=== PATIENT | female | born 1960 | race African-American/Black ===

== ENCOUNTER 2021-10-06 13:03 | Emergency (ER) | payer OTHER ==
[2021-10-06 13:14] VITALS: TEMP 98.6; BMI 28.7
[2021-10-06] MEDS ORDERED: ACETAMINOPHEN 1000 MG/100 ML BAG IVPB ONE (13:25)
[2021-10-06] MEDS ORDERED: ASPIRIN 81 MG CHEWABLE TABLETS PO ONE (13:25)
[2021-10-06] MEDS ORDERED: ASPIRIN 81 MG CHEWABLE TABLETS ONE (13:34)
[2021-10-06] MEDS ORDERED: ACETAMINOPHEN INJECTION 100 ML IVPB ONE (13:35)
[2021-10-06 14:24] LABS: BASO % 0.6 % (0-2.0); EOS % 0.8 % (0-4.5); HEMATOCRIT 36.5 % (32.4-45.2); HEMOGLOBIN 11.6 GM/dL (10.7-15.3); LYMPH % 35.6 % (8-40); MCH 26.3 pg (25.7-33.7); MCHC 31.9 g/dl (32.0-36.0); MEAN CELL VOLUME 82.5 fl (80-96); MEAN PLT VOLUME 8.8 fl (7.5-11.1); MONO % 5.3 % (3.8-10.2); NEUT % 57.7 % (42.8-82.8); PLATELET COUNT 241 10^3/uL (134-434); RBC 4.42 M/mm3 (3.60-5.2); RDW 14.7 % (11.6-15.6); WHITE BLOOD COUNT 3.7 K/mm3 (4.0-10.0)
[2021-10-06 14:57] LABS: CHLORIDE 108 mmol/L (98-107); SODIUM 142 mmol/L (136-145)
[2021-10-06 14:59] LABS: CALCIUM 9.7 mg/dL (8.5-10.1)
[2021-10-06 15:00] LABS: ALBUMIN 3.6 g/dl (3.4-5.0); ANION GAP 6 MMOL/L (8-16); BLOOD UREA NITROGEN 17.6 mg/dL (7-18); CO2 29 mmol/L (21-32); GLUCOSE,RANDOM 86 mg/dL (74-106)
[2021-10-06 15:03] LABS: SGOT/AST 21 U/L (15-37); SGPT/ALT 24 U/L (13-61)
[2021-10-06 15:04] LABS: BILIRUBIN,TOTAL 0.4 mg/dL (0.2-1); TOT PROT 7.6 g/dl (6.4-8.2)
[2021-10-06 15:06] LABS: ALK PHOS 120 U/L (45-117)
[2021-10-06] MEDS ORDERED: MAG HYDROX/AL HYDROX/SIMETH 30 ML UNIT-DOSE CUP PO ONE (15:12)
[2021-10-06] MEDS ORDERED: FAMOTIDINE 10 MG TABLET PO ONE (15:12)
[2021-10-06] MEDS ORDERED: FAMOTIDINE 20 MG/50 ML IVPB 20 MG/50 ML MG IVPB ONE ×2 (15:13→15:19)
[2021-10-06] MEDS ORDERED: MAG HYDROX/AL HYDROX/SIMETH 30 ML UNIT-DOSE CUP ONE (15:19)
[2021-10-06 15:58] VITALS: BP 136/86; PULSE 81
== END 2021-10-06 15:59 | disposition home or self-care (01) ==
LOC: JER 13:03
PROC: 3E0333Z Introduction of Anti-inflammatory into Peripheral Vein, Percutaneous Approach (ICD-10-PCS; principal; 2021-10-06)
PROC: 3E033GC Introduction of Other Therapeutic Substance into Peripheral Vein, Percutaneous Approach (ICD-10-PCS; 2021-10-06)
DX: R07.9 Chest pain, unspecified (principal)
CPT/HCPCS: 36415; 71045-TC-FY; 80053; 82550; 82553; 84443; 84484; 85025; 93005; 93010; 99285-25; C9803; J0131; U0003; U0005

== ENCOUNTER 2022-05-13 15:23 | Emergency (ER) | payer OTHER ==
[2022-05-13 15:48] VITALS: RESP 18; TEMP 97.6; BMI 28.8
[2022-05-13] MEDS ORDERED: MECLIZINE HCL 25 MG TABLET (FP) PO ONE (17:04)
[2022-05-13] MEDS ORDERED: MECLIZINE HCL 25 MG TABLET (FP) ONE (17:25)
[2022-05-13 18:30] LABS: BASO % 0.5 % (0-2.0); EOS % 1.1 % (0-4.5); HEMATOCRIT 35.9 % (32.4-45.2); HEMOGLOBIN 11.8 GM/dL (10.7-15.3); LYMPH % 26.4 % (8-40); MCH 27.4 pg (25.7-33.7); MCHC 32.9 g/dl (32.0-36.0); MEAN CELL VOLUME 83.4 fl (80-96); MEAN PLT VOLUME 8.8 fl (7.5-11.1); MONO % 4.5 % (3.8-10.2); NEUT % 67.5 % (42.8-82.8); PLATELET COUNT 232 10^3/uL (134-434); RDW 14.6 % (11.6-15.6); WHITE BLOOD COUNT 4.5 K/mm3 (4.0-10.0)
[2022-05-13 18:35] LABS: EPI CELLS 6 /uL (0-25.1); HYALINE CASTS 0 /uL (0-3.1); PH,URINE 7.5 (5.0-8.0); URINE APPEARANCE CLEAR; URINE BACTERIA 65 /uL (0-1359); URINE BILIRUBIN NEGATIVE (NEGATIVE); URINE COLOR YELLOW; URINE GLUCOSE (UA) NEGATIVE (NEGATIVE); URINE KETONE NEGATIVE (NEGATIVE); URINE LEUK ESTERASE NEGATIVE (NEGATIVE); URINE NITRITE NEGATIVE (NEGATIVE); URINE PROTEIN NEGATIVE (NEGATIVE); URINE RBC 11 /uL (0-23.9); URINE UROBILINOGEN 0.2 mg/dL (0.2-1.0); URINE WBC 1 /uL (0-25.8)
[2022-05-13 18:47] LABS: CALCIUM 9.3 mg/dL (8.5-10.1)
[2022-05-13 18:49] LABS: ALBUMIN 3.6 g/dl (3.4-5.0); BLOOD UREA NITROGEN 13.6 mg/dL (7-18); MAGNESIUM 2.1 mg/dL (1.8-2.4)
[2022-05-13 18:52] LABS: CREATININE 0.9 mg/dL (0.55-1.3)
[2022-05-13 18:53] LABS: BILIRUBIN,TOTAL 0.3 mg/dL (0.2-1); TOT PROT 7.5 g/dl (6.4-8.2)
[2022-05-13 18:56] LABS: N-TERMINAL BNP 195.1 pg/ml (5-125)
[2022-05-13 18:59] LABS: ACTIVATED PTT 31.8 SECONDS (25.2-36.5); INR 1.04 (0.83-1.09)
[2022-05-13 20:05] VITALS: BP 131/77; PULSE 64
== END 2022-05-13 21:57 ==
LOC: JER 15:23
DX: R42 Dizziness and giddiness (principal)
CPT/HCPCS: 36415; 70551-TC; 71045-TC-FY; 80053; 81003; 82962; 83735; 83880; 84484; 85025; 85610; 85730; 87086; 93005; 93010; 99285-25; C9803-CS; U0003; U0005

== ENCOUNTER 2024-11-05 16:09 | Emergency (ER) | payer OTHER ==
[2024-11-05 16:16] VITALS: BP 133/75; PULSE 70; RESP 18; TEMP 98.2; BMI 28.7
[2024-11-05] MEDS ORDERED: LIDOCAINE 5% TOPICAL PATCH ONE (17:04)
[2024-11-05] MEDS: LIDOCAINE 5% TOPICAL PATCH TP ONE (17:07)
== END 2024-11-05 18:04 | disposition home or self-care (01) ==
LOC: JERFT 16:09 → JER 16:09 → JERFT 18:04
DX: S43.401A Unspecified sprain of right shoulder joint, initial encounter (principal); X50.1XXA Overexertion from prolonged static or awkward postures, initial encounter; Y99.0 Civilian activity done for income or pay
CPT/HCPCS: 73030-TC-RT-FY; 99283-25